=== PATIENT | female | born 1990 | race Caucasian/White ===

== ENCOUNTER 2019-01-06 20:21 | Emergency (ER) | payer MEDICAID ==
[~2019-01-06] VITALS: Ht 154.9 cm; Wt 63.6 kg
[~2019-01-06 20:21] MED LIST: CLIN150C8 PO; HYDR-4383 PO; NAPR-1144 PO
[2019-01-06] MEDS ORDERED: clindamycin 150mg capsule PO ONE (20:50)
[2019-01-06] MEDS ORDERED: CLIN150C8 PO (20:50)
[2019-01-06] MEDS ORDERED: acetaminophen 325mg tablet PO ONE (20:50)
[2019-01-06] MEDS ORDERED: ACET-2119 PO (20:50)
[2019-01-06] MEDS ORDERED: ibuprofen tablet 400 MG TABLET PO ONE (21:10)
[2019-01-06] MEDS ORDERED: IBUP-1984 PO (21:12)
[2019-01-06 21:40] VITALS: BP 133/85
== END 2019-01-06 21:30 | disposition home or self-care (01) ==
LOC: ER 20:22
DX: L02.01 Cutaneous abscess of face (principal); G89.29 Other chronic pain; Z86.14 Personal history of Methicillin resistant Staphylococcus aureus infection; Z88.8 Allergy status to other drugs, medicaments and biological substances; Z79.899 Other long term (current) drug therapy
CPT/HCPCS: 10060; 99283